=== PATIENT | female | born 1975 | race Asian ===

== ENCOUNTER 2017-10-29 19:21 | Emergency (ER) | payer OTHER ==
[~2017-10-29] VITALS: Ht 162.6 cm; Wt 59.9 kg
[2017-10-29 19:29] VITALS: BP 111/71
[2017-10-29] MEDS ORDERED: PROPARACAINE OPHTH 0.5%, 15ML ONE (19:43)
[2017-10-29] MEDS ORDERED: FLUORESCEIN OPHTHALMIC 1 MG STRIP ONE (19:43)
[2017-10-29] MEDS ORDERED: PROPARACAINE OPHTH 0.5%, 15ML EACHEYE ONE (20:00)
[2017-10-29] MEDS ORDERED: FLUORESCEIN OPHTHALMIC 1 MG STRIP EACHEYE ONE (20:00)
== END 2017-10-29 20:28 | disposition home or self-care (01) ==
LOC: ED 20:22
DX: H57.11 Ocular pain, right eye (principal); X58.XXXA Exposure to other specified factors, initial encounter; Y93.89 Activity, other specified; Y99.8 Other external cause status; Y92.009 Unspecified place in unspecified non-institutional (private) residence as the place of occurrence of the external cause
CPT/HCPCS: 99283